=== PATIENT | female | born 1980 ===

== ENCOUNTER 2023-01-20 12:00 | Outpatient (CLI) | payer SELFPAY | END 2023-01-20 12:01 | disposition EMS.NT | LOC: EMS 12:00 | DX: M79.672 Pain in left foot (principal); R23.8 Other skin changes; Z59.00 Homelessness unspecified ==

== ENCOUNTER 2023-10-17 18:09 | Outpatient (CLI) | payer SELFPAY | END 2023-10-17 18:10 | disposition EMS.NT | LOC: EMS 18:09 | DX: T76.11XA Adult physical abuse, suspected, initial encounter (principal) ==